=== PATIENT | male | born 1985 | race Caucasian/White ===

== ENCOUNTER 2023-04-05 10:20 | Emergency (ER) | payer SELFPAY ==
--- NOTE | 2023-04-05 10:22 | ED_ITS ---
HPI - Skin/Abscess/Foreign Bdy General: Chief complaint: Skin/Abscess/Foreign Body Stated complaint: rash Time Seen by Provider: 04/05/23 10:22 Source: patient Mode of arrival: ambulatory Limitations: no limitations History of Present Illness: Patient is a 37-year-old male who presents to ED today with a complaint of multiple tick bites to his bilateral feet that he noticed a few days ago. He states the ticks were not attached along but when he pulled them off he then developed a small pustule like lesions that he stated are painful to the touch. He has not noticed any bulls eye lesions. No systemic symptoms. States he is homeless and has a hard time keeping his feet clean. MD complaint: insect bite/sting Onset (ago): day(s) Tetanus up to date: yes Location: L foot and R foot Severity: mild Quality: burning Pain Consistency: constant Relieving factors: none Exacerbating factors: none Context: witnessed insect bite Associated symptoms: Reports no associated symptoms; Deny chills, fever(s), nausea or vomiting Treatments prior to arrival: attempted to drain pus at home Review of Systems Const: Denies: fever(s), chills, body aches, fatigue or malaise Card: Denies: chest pain Resp: Denies: dyspnea GI: Denies: abdominal pain, nausea, vomiting or diarrhea Musc: Reports: extremity pain (bilateral feet); Denies: neck pain, back pain, extremity swelling, joint pain or joint swelling Skin/Breast: Reports: other (tick bites) Neuro: Denies: headache(s), numbness in extremities, weakness in extremities, sensory changes or dizziness Physical Exam Const: COMMON NORMALS: no acute distress, average body habitus, patient oriented x3, no limitations, alert and well nourished GENERAL APPEARANCE: cooperative and disheveled (dirty/odorous-states he is homeless) ORIENTATION/CONSCIOUSNESS: Yes awake, Yes oriented to person, Yes oriented to place and Yes oriented to time Lymph: LYMPHATIC: no lymphadenopathy noted Resp: COMMON NORMALS: normal respiratory effort and clear to auscultation bilaterally AUSCULTATION: clear to auscultation bilaterally Cardio: COMMON NORMALS: regular rate and regular rhythm RATE: regular rate RHYTHM: regular rhythm Extremity: COMMON NORMALS: full ROM, capillary refill normal, no joint enlargement, no clubbing, cyanosis or edema, no calf tenderness and no pedal edema RIGHT LOWER EXTREMITY: Yes foot & digits LEFT LOWER EXTREMITY: Yes foot & digits OTHER: patient has two 3-4mm pustular lesions to dorsal R foot and one to dorsal L foot as well as dorsal L middle toe that he states are from where he pulled ticks off; scant surrounding erythema; no erythema migrans lesions; no streaking; no drainage Neuro: COMMON NORMALS: patient oriented x3, moves all extremities, no focal motor deficits and no sensory deficits noted SENSORIUM/ORIENTATION: Yes alert, Yes oriented to person, Yes oriented to place and Yes oriented to time Course Vital Signs: Vital signs: Vital Signs Temperature 98.0 F 04/05/23 10:23 Pulse Rate 105 H 04/05/23 10:23 Respiratory Rate 16 04/05/23 10:23 Blood Pressure 135/82 04/05/23 10:23 Pulse Oximetry 99 04/05/23 10:23 Oxygen Delivery Me thod Room Air 04/05/23 10:23 MDM - Skin/Abscess/Foreign Bdy Medicial Decision Making Patient appears to have pustular formations from where he pulled ticks off. I do not have any concern at this time for tick illness and he does not need to be covered with such. He admittedly is homeless and has a hard time keeping his feet clean therefore I question whether these bites are starting to get seconda rily infected. Will place him on Keflex. Recommend avoid picking/attempting to drain. Discussed getting him set up with PCP but he declines. Return to ED precautions given. Discharge Plan Discharge Patient Disposition: Home Clinical Impression: Tick bite Qualifiers: Encounter type: initial encounter Site of tick bite: foot Laterality: unspecified laterality Qualified Code(s): S90.869A - Insect bite (nonvenomous), unspecified foot, initial encounter Condition: Stable Prescriptions: New cephalexin 500 mg capsule 500 mg PO Q6H 7 Days Qty: 28 0RF Discharge Orders: Discharge ED (Routine); Ordered 04/05/23 Ordered By: Ivana Allen Patient Instructions: Tick Bites Activity Restrictions/Additional Instructions: As we discussed keep lesions clean with warm soap and water. Avoid poking or trying to drain lesions. Monitor for worsening redness, swelling, pain, drainage. Please seek medical reevaluation if these occur. Coding Level of Care Code ED [employer] T[employer] for [facility]
[2023-04-05 10:23] VITALS: BP 135/82; PULSE 105; RESP 16; TEMP 36.7; O2SAT 99; BMI 22.1
== END 2023-04-05 10:52 | disposition home or self-care (01) ==
PROVIDERS: Emergency Provider Physician Assistant
DX: S90.862A Insect bite (nonvenomous), left foot, initial encounter (principal); S90.861A Insect bite (nonvenomous), right foot, initial encounter; W57.XXXA Bitten or stung by nonvenomous insect and other nonvenomous arthropods, initial encounter
CPT/HCPCS: 99283

== ENCOUNTER 2023-04-22 09:38 | Emergency (ER) | payer SELFPAY ==
--- NOTE | 2023-04-22 09:51 | XR_ITS ---
WS: [id number] LEFT FOREARM 2 VIEWS HISTORY: fall with pain COMPARISON: None available. No fracture or dislocation. No foreign body or joint effusion. No true lateral of the elbow was submitted. IMPRESSION: Negative LEFT forearm. No fractures are identified.
--- NOTE | 2023-04-22 09:51 | XR_ITS ---
WS: [id number] LEFT ELBOW: 3 VIEW(S) TECHNIQUE: AP, oblique and lateral. HISTORY: fall with pain and swelling COMPARISON: None available. No acute fractures or dislocation. No joint effusion. No soft tissue abnormality. IMPRESSION: Normal LEFT elbow.
[2023-04-22 09:55] VITALS: BP 144/98; PULSE 79; RESP 22; O2SAT 97; BMI 22.8
[2023-04-22 10:02] VITALS: BP 144/98; PULSE 84; RESP 22; TEMP 36.6; O2SAT 98
[2023-04-22 10:08] VITALS: RESP 18
[2023-04-22] MEDS: morphine 4 mg/mL SDV 1 mL IM (10:08)
[2023-04-22] MEDS: ondansetron 4 MG Tablet PO (10:09)
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
--- NOTE | 2023-04-22 13:36 | PC.SOCIAL ---
Ortho Referral Ortho referral sent at this time; clinic to contact patient with appt date/time.
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
== END 2023-04-22 11:57 | disposition home or self-care (01) ==
PROVIDERS: Emergency Provider Nurse Practitioner Family
DX: S50.02XA Contusion of left elbow, initial encounter (principal); W18.30XA Fall on same level, unspecified, initial encounter
CPT/HCPCS: 73070; 73090; 96372; 99284; J2270; Q0162

== ENCOUNTER 2023-04-30 18:46 | Emergency (ER) | payer SELFPAY ==
[2023-04-30 18:59] VITALS: BP 129/79; PULSE 108; RESP 16; TEMP 36.9; O2SAT 99; BMI 21.4
--- NOTE | 2023-04-30 19:04 | XRR_ITS ---
PROCEDURE INFORMATION: Exam: XR Left Elbow Exam date and time: 04/30/2023 7:45 PM Age: 37 years old Clinical indication: Injury or trauma; Other: Lt elbow pain; Other: Edema and bruising to medial left elbow TECHNIQUE: Imaging protocol: Radiologic exam of the left elbow. Views: 3 or more views. COMPARISON: CR XR elbow LT 2V [id number] 04/22/2023 9:59 AM FINDINGS: Bones/joints: Small ossific densities adjacent to the lateral epicondyle are unchanged. No displaced fracture visible. No effusion. Soft tissues: Mild soft tissue swelling. XR/XR elbow LT min 3V* [id number] IMPRESSION: 1. Stable small ossific densities adjacent to the lateral epicondyle which may be related to an avulsion injury. MRI could be performed for better characterization. 2. Mild soft tissue swelling.
== END 2023-04-30 20:48 | disposition left against medical advice (07) ==
PROVIDERS: Emergency Provider Family Medicine
DX: Z53.21 Procedure and treatment not carried out due to patient leaving prior to being seen by health care provider (principal)
CPT/HCPCS: 73080; 99283

== ENCOUNTER 2024-08-28 13:26 | Emergency (ER) | payer SELFPAY ==
--- NOTE | 2024-08-28 13:27 | XRR_ITS ---
PROCEDURE INFORMATION: Exam: XR Chest Exam date and time: 08/28/2024 1:40 PM Age: 39 years old Clinical indication: Coughing up yellow/greenish stuff; Additional info: Cough TECHNIQUE: Imaging protocol: Radiologic exam of the chest. Views: 1 view. COMPARISON: No relevant prior studies available. FINDINGS: Lungs: Unremarkable. No consolidation. Pleural spaces: Unremarkable. No pleural effusion. No pneumothorax. Heart/Mediastinum: Unremarkable. No cardiomegaly. Bones/joints: Unremarkable. XR/XR chest 1V portable [id number] IMPRESSION: No acute findings.
[2024-08-28 13:34] VITALS: BP 114/76; PULSE 96; RESP 15; TEMP 36.7; O2SAT 96; BMI 21.4
== END 2024-08-28 16:09 | disposition left against medical advice (07) ==
PROVIDERS: Emergency Provider Family Medicine
DX: Z53.21 Procedure and treatment not carried out due to patient leaving prior to being seen by health care provider (principal)
CPT/HCPCS: 71045

== ENCOUNTER 2025-03-15 12:51 | Emergency (ER) | payer OTHER, SELFPAY ==
--- OUTSIDE RECORDS SUMMARY | 2025-03-15 12:59 | XMS_ITS | Clinical Summary ---
[facility] Organization [facility] Address [address] [place] [address] Phone Care Team Providers Care Protective Clothing Issuer Name Role Phone Unavailable Primary Care Provider Unavailabl e Allergies No known active allergies Medications No known medications Social History Tobacco Use Types Packs/Day Years Used Date Smoking Tobacco: Every Day Cigarettes Smokeless Tobacco: Never Tobacco Cessation:Ready to Q uit: Not Asked; Counseling Given: Not Answered Alcohol Use Standard Drinks/Week Comments Yes 0 (1 standard drink = 0.6 oz pur e alcohol) Feeling Safe Answer Date Recorded Are you in a relationship wi th someone who hurts you emotionally and/or physically? No 07/14/2023 Sex and Gender Information Value Date Recorded Sex Assigned at Not on file Legal Sex Male 4:44 PM [employer] Gender Identity Not on file Sexual Orientation Not on file Last Filed Vital Signs Vital Sign Reading Time Taken Comments Blood Pressure 128/69 07/14/2023 4:51 PM [employer] Pulse - - Temperature 36.6 C (97.8 F) 07/14/2023 4:51 PM [employer] Respiratory Rate 14 07/14/2023 4:51 PM [employer] Oxygen Saturation 98% 07/14/2023 4:51 PM [employer] Inhaled Oxygen Concentration - - Weight 68 kg (149 lb 14.4 oz) 07/14/2023 4:51 PM [employer] Height 175.3 cm (5' 9 ) 07/14/2023 4:51 PM [employer] Body Mass Index 22.14 07/14/2023 4:51 PM [employer] Plan of Treatment Health Maintenance Due Date Last Done Comments HPV VACCINES (1 - Male 3-dose series) 2000 DTAP/TDAP/TD VACCINES (1 - Tdap) 2004 HEPATITIS B VACCINES (1 of 3 - 19+ 3-dose series) 07/27 INFLUENZA VACCINE (#1) 2025 Insurance [employer] [place] [employer]
[2025-03-15 13:02] VITALS: BP 118/79; PULSE 79; RESP 17; TEMP 36.7; O2SAT 100; BMI 21.4
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
[2025-03-15] MEDS: tetanus-dipt-pertussis 0.5 mL SDV IM (15:21)
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
== END 2025-03-15 16:55 | disposition left against medical advice (07) ==
PROVIDERS: Emergency Provider Physician Assistant
DX: Z53.21 Procedure and treatment not carried out due to patient leaving prior to being seen by health care provider (principal); S50.311A Abrasion of right elbow, initial encounter; S60.511A Abrasion of right hand, initial encounter; S70.01XA Contusion of right hip, initial encounter; V09.9XXA Pedestrian injured in unspecified transport accident, initial encounter
CPT/HCPCS: 71250; 73080; 73130; 74176; 90715; 99284

== ENCOUNTER 2025-03-31 18:22 | Emergency (ER) | payer OTHER, SELFPAY ==
[2025-03-31 18:26] VITALS: BP 113/75; PULSE 90; RESP 17; TEMP 36.7; O2SAT 99; BMI 22.1
--- OUTSIDE RECORDS SUMMARY | 2025-03-31 18:27 | XMS_ITS | Clinical Summary ---
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 Gender Identity Not on file Sexual Orientation Not on file Last Filed Vital Signs Vital Sign Reading Time Taken Comments Blood Pressure 128/69 07/14/2023 4:51 PM COMMUNITY PLANNING TECHNICIAN Pulse - - Temperature 36.6 C (97.8 F) 07/14/2023 4:51 PM COMMUNITY PLANNING TECHNICIAN Respiratory Rate 14 07/14/2023 4:51 PM COMMUNITY PLANNING TECHNICIAN Oxygen Saturation 98% 07/14/2023 4:51 PM COMMUNITY PLANNING TECHNICIAN Inhaled Oxygen Concentration - - Weight 68 kg (149 lb 14.4 oz) 07/14/2023 4:51 PM COMMUNITY PLANNING TECHNICIAN Height 175.3 cm (5' 9 ) 07/14/2023 4:51 PM COMMUNITY PLANNING TECHNICIAN Body Mass Index 22.14 07/14/2023 4:51 PM COMMUNITY PLANNING TECHNICIAN Plan of Treatment Health Maintenance Due Date Last Done Comments DTAP/TDAP/TD VACCINES (1 - Tdap) 2004 HEPATITIS B VACCINES (1 of 3 - 19+ 3-dose series) 07/27 HPV VACCINES (1 - 3-dose SCDM series) 2012 INFLUENZA VACCINE (#1) 2025 Insurance [employer] [place] [place] MEDICAID
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
[2025-03-31] MEDS: orphenadrine 30 mg/mL Inj 2 mL 60 MG IM (19:20)
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
== END 2025-03-31 20:29 | disposition home or self-care (01) ==
PROVIDERS: Emergency Provider Physician Assistant
DX: S70.01XA Contusion of right hip, initial encounter (principal); X58.XXXA Exposure to other specified factors, initial encounter
CPT/HCPCS: 73502; 96372; 99284; J1885; J2360

== ENCOUNTER → 2025-05-17 16:46 | Outpatient (BNVA) | payer OTHER, SELFPAY | PROVIDERS: Visit Provider Registered Nurse Neonatal Intensive Care | DX: Z20.2 Contact with and (suspected) exposure to infections with a predominantly sexual mode of transmission (principal) | CPT/HCPCS: 87491; 87591; 87661 ==

== ENCOUNTER 2025-07-19 15:40 | Emergency (ER) | payer OTHER, SELFPAY ==
[2025-07-19 15:42] VITALS: BP 126/79; PULSE 67; RESP 18; TEMP 36.6; O2SAT 98; BMI 22.8
--- OUTSIDE RECORDS SUMMARY | 2025-07-19 15:59 | XMS_ITS | Clinical Summary ---
Author Organization [facility] Address [address] [address] Phone Care Team Providers Care Pneumatic Tester Mechanic Name Role Phone Unavailable Primary Care Provider [...] on file Legal Sex Male 4:44 PM LIVESTOCK PRODUCER Gender Identity Not on file Sexual Orientation Not on file Last Filed Vital Signs Vital Sign Reading Time Taken Comments Blood Pressure 128/69 07/14/2023 4:51 PM LIVESTOCK PRODUCER Pulse - - Temperature 36.6 C (97.8 F) 07/14/2023 4:51 PM LIVESTOCK PRODUCER Respiratory Rate 14 07/14/2023 4:51 PM LIVESTOCK PRODUCER Oxygen Saturation 98% 07/14/2023 4:51 PM LIVESTOCK PRODUCER Inhaled Oxygen Concentration - - Weight 68 kg (149 lb 14.4 oz) 07/14/2023 4:51 PM LIVESTOCK PRODUCER Height 175.3 cm (5' 9 ) 07/14/2023 4:51 PM LIVESTOCK PRODUCER Body Mass Index 22.14 07/14/2023 4:51 PM LIVESTOCK PRODUCER Plan of Treatment Health Maintenance Due Date Last Done Comments DTAP/TDAP/TD VACCINES (1 - Tdap) 2004 HEPATITIS B VACCINES (1 of 3 - 19+ 3-dose series) 07/27 INFLUENZA VACCINE (#1) 2025 HPV VACCINES (No Doses Required) Completed Insurance [employer] [place] [employer]
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
[2025-07-19 16:21] LABS: Hematocrit 45.1 % (37-53); Hemoglobin 14.60 g/dL (11.27-16.99); Mean Corpuscular HGB Conc 32.4 g/dL (30-55); Mean Corpuscular Hemoglobin 30.3 pg (27-33); Mean Corpuscular Volume 93.6 fl (82-101); Nucleated Red Blood Cells % 0 %; Platelet Count 199 10^3/cmm (157-399); Red Blood Count 4.82 10^6/uL (3.85-5.65); White Blood Count 5.92 10^3/uL (3.29-11.43)
--- NOTE | 2025-07-19 16:22 | ED_ITS ---
HPI - Male Genitourinary 2 General: Chief complaint: Urogenital-Male Stated complaint: Blood in Urine Time Seen by Provider: 07/19/25 15:42 Source: patient Mode of arrival: ambulatory Limitations: no limitations History of Present Illness: Patient is a 39-year-old male presents the emergency department from [facility] for complaints of hematuria and right flank and lower abdominal pain for the past few days. States he has a history of UTI as well as kidney infection, and states that in the past he has had infections so bad that his kidneys have shut down. No fevers, nausea/vomiting, trauma, changes in bowel habits, chills, or other symptoms reported at this time. His vitals are stable. He states that he has noted that he has had some incontinence of urine, noting it has been bloody. Complaint: other (Hematuria) Onset (ago): day(s) Duration: constant Severity: similar to previous episodes Associated symptoms: Reports dysuria, hematuria and urinary incontinence; Deny nausea or vomiting Related Data Previous Rx's ?Medication ?Instructions ?Recorded doxycycline hyclate 100 mg tablet 100 mg PO BID 7 days #14 tabs 05/18/25 metronidazole 500 mg tablet 500 mg PO BID 7 days #14 t abs 05/18/25 Allergies Allergy/AdvReac Type Severity Reaction Status Date / Time No Known Allergies Allergy Verified 05/16/25 17:53 Review of Systems 2 General: Reports: 10 or more systems reviewed and unremarkable except in HPI and below Const: Denies: fever(s), chills, change in appetite, change in weight or diaphoresis ENMT: Denies: throat pain or hoarseness Card: Denies: chest pain, palpitations or lightheadedness Resp: Denies: dyspnea, productive cough or wheezing GI: Reports: abdominal pain; Denies: nausea, vomiting, diarrhea, constipation, bloating, change in stool character or hematochezia : Reports: flank pain, dysuria, urinary frequency, urinary incontinence and hematuria Musc: Denies: neck pain or back pain Skin/Breast: Denies: rash or new lesions Neuro: Denies: headache(s) or dizziness PFSH ED 2 PFSH: Social History Smoking and tobacco/nicotine status: current every day tobacco/nicotine user Second hand smoke exposure: Yes Alcohol intake: current Substance/Drug Use: current Substance/Drug use frequency: daily Physical Exam 2 Const: COMMON NORMALS: no acute distress, average body habitus, patient oriented x3, no limitations, healthy appearing, alert and well nourished G ENERAL APPEARANCE: cooperative and comfortable ORIENTATION/CONSCIOUSNESS: Yes awake OTHER: Nontoxic Neck/C-Spine: COMMON NORMALS: full ROM, supple and no meningeal signs Resp: COMMON NORMALS: normal respiratory effort, No retractions, No use of accessory muscles and clear to auscultation bilaterally AUSCULTATION: clear to auscultation bilaterally, no crackles, no rales, no rhonchi and no wheezes Cardio: COMMON NORMALS: regular rate, regular rhythm, No gallops present (Cardio), No clicks present (Cardio), No murmurs present (Cardio) and No rub (Cardio) RATE: regular rate RHYTHM: regular rhythm GI: COMMON NORMALS: Normal to inspection, nondistended, normoactive bowel sounds present, Soft to palpation, No hepatosplenomegaly present and no masses AUSCULTATION: Yes normoactive bowel sounds PALPATION: Yes Soft to palpation, No Guarding due to palpation present (GI), No Rigid due to palpation and Yes No hepatosplenomegaly present RECTAL EXAM: Yes deferred OTHER: Tenderness to right lower abdomen : OTHER: Tender to right flank region Extremity: COMMON NORMALS: normal to inspection and full ROM Neuro: COMMON NORMALS: patient oriented x3, moves all extremities, no focal motor deficits and no sensory deficits noted SENSORIUM/ORIENTATION: Yes alert MENINGEAL SIGNS: Yes no meningeal signs Psych: COMMON NORMALS: mental status grossly normal, cooperative and speech normal SPEECH: Yes normal speech Skin: COMMON NORMALS: no rashes or lesions noted GENERAL SKIN EXAM: no rashes or lesions noted Course 2 Vital Signs: Vital signs: Vital Signs Temperature 97.9 F 07/19/25 15:42 Pulse Rate 72 07/19/25 17:39 Respiratory Rate 18 07/19/25 15:42 Blood Pressure 113/70 07/19/25 17:39 Pulse Oximetry 100 07/19/25 17:39 Oxygen Delivery Sd thod Room Air 07/19/25 16:53 MDM - Male Medical Decision Making The patient presented from [facility] for evaluation of hematuria flank and abdominal pain. Reports to me history of UTI as well as kidney infections. Nontoxic- appearing on exam he had reproducible tenderness to the right flank region as well as to the right lower abdomen. Vitals have been stable. Urinalysis showing blood but no signs infection. His blood work is normal including normal kidney function. CT Abdo pelvis with no acute findings. This is isolated hematuria will be referred to urologist as he is stable for discharge home and outpatient follow-up. Patient agrees with this plan at this time has remained stable throughout ED course. Lab Data 07/19/25 16:14 07/19/25 16:14 Radiology Impressions Abdomen/Pelvis CT 07/19/25 16:01 IMPRESSION: No acute findings. Laboratory Results WBC 5.92 10^3/uL (3.29-11.43) 07/19/25 16:14 RBC 4.82 10^6/uL (3.85-5.65) 07/19/25 16:14 Hgb 14.60 g/dL (11.27-16.99) 07/19/25 16:14 Hct 45.1 % (37-53) 07/19/25 16:14 MCV 93.6 fl (82-101) 07/19/25 16:14 MCH 30.3 pg (27-33) 07/19/25 16:14 MCHC 32.4 g/dL (30-55) 07/19/25 16:14 RDW 13.3 % (12.1-15.1) 07/19/25 16:14 Plt Count 199 10^3/cmm (157-399) 07/19/25 16:14 MPV 12.0 fL (7.4-10.4) H 07/19/25 16:14 Neut % (Auto) 52.4 % 07/19/25 16:14 Lymph % (Auto) 35.6 % 07/19/25 16:14 Riley % (Auto) 9.1 % 07/19/25 16:14 Eos % (Auto) 2.0 % 07/19/25 16:14 Baso % (Auto) 0.7 % 07/19/25 16:14 Neut # (Auto) 3.10 10^3/uL (1.8-7.7) 07/19/25 16:14 Lymph # (Auto) 2.1 10^3/uL (0.8-4.8) 07/19/25 16:14 Riley # (Auto) 0.5 10^3/uL (0.2-0.9) 07/19/25 16:14 Eos # (Auto) 0.1 10^3/uL (0.0-0.8) 07/19/25 16:14 Baso # (Auto) 0.0 10^3/uL (0.0-0.1) 07/19/25 16:14 Nucleated RBC % (auto) 0 % 07/19/25 16:14 Nucleated RBCs # 0.0 /100WBC 07/19/25 16:14 Sodium 141 mmol/L (136-145) 07/19/25 16:14 Potassium 4.7 mmol/L (3.5-5.1) 07/19/25 16:14 Chloride 101 mmol/L (98-107) 07/19/25 16:14 Carbon Dioxide 29 mmol/L (22-29) 07/19/25 16:14 Anion Gap 15.7 (5-19) 07/19/25 16:14 BUN 18 mg/dL (6-20) 07/19/25 16:14 Creatinine 1.0 mg/dL (0.7-1.2) 07/19/25 16:14 GFR Calculation 83.2 mL/min (90-130) L 07/19/25 16:14 Glucose 103 mg/dL (65-115) 07/19/25 16:14 Calculated Osmolality 294 mOsm/kg (285-295) 07/19/25 16:14 Calcium 9.4 mg/dL (8.5-10.5) 07/19/25 16:14 Total Bilirubin 0.3 mg/dL (0.15-1.2) 07/19/25 16:14 AST 17 U/L (0-40) 07/19/25 16:14 ALT 22 U/L (0-41) 07/19/25 16:14 Alkaline Phosphatase 63 U/L (40-130) 07/19/25 16:14 Total Protein 6.9 g/dL (6.6-8.7) 07/19/25 16:14 Albumin 4.6 g/dL (3.5-5.2) 07/19/25 16:14 Globulin 2.3 g/dL (1.3-4.6) 07/19/25 16:14 Lipase 32 U/L (13-60) 07/19/25 16:14 Urine Color Yellow (Yellow) 07/19/25 16:38 Urine Appearance Cloudy (CLEAR) A 07/19/25 16:38 Urine pH 7.0 (5-7) 07/19/25 16:38 Ur Specific [place] 1.022 (1.005-1.030) 07/19/25 16:38 Urine Protein Negative (Negative) 07/19/25 16:38 Urine Glucose (UA) Negative (Normal) 07/19/25 16:38 Urine Ketones Trace (Negative) 07/19/25 16:38 Urine Blood 3+ (Negative) A 07/19/25 16:38 Urine Nitrate Negative (Negative) 07/19/25 16:38 Urine Bilirubin Negative (Negative) 07/19/25 16:38 Urine Urobilinogen 1.0 mg/dL (Negative) 07/19/25 16:38 Ur Leukocyte Esterase Trace (Negative) A 07/19/25 16:38 Urine RBC >100 /hpf (0-2) H 07/19/25 16:38 Urine WBC 6-10 /hpf (0-5) 07/19/25 16:38 Ur Squamous Epith Cells 0-5 /hpf (0-5) 07/19/25 16:38 Amorphous Sediment Not Reportable 07/19/25 16:38 Urine Bacteria None seen /hpf (NONE) 07/19/25 16:38 Hyaline Casts 0.40 /lpf 07/19/25 16:38 All radiology interpretation(s) finalized by discharge Discharge Plan Discharge Patient Disposition: Home Clinical Impression: Hematuria Qualifiers: Hematuria type: gross Qualified Code(s): R31.0 - Gross hematuria Condition: Stable Prescriptions: No Action doxycycline hyclate 100 mg tablet 100 mg PO BID 7 Days Qty: 14 0RF metronidazole 500 mg tablet 500 mg PO BID 7 Days Qty: 14 0RF Discharge Orders: Discharge ED (Routine); Ordered 07/19/25 Ordered By: Ambrose Daugherty Patient Instructions: Patient Portal & Shen Instructions Activity Restrictions/Additional Instructions: Discharge Instructions: Isolated Hematuria Diagnosis: You were evaluated for blood in your urine (hematuria). Your blood tests and CT scan were normal. What This Means: Blood in the urine can have many causes. While your initial testing showed no obvious problems, it is important to complete a full evaluation with a urologist (a specialist in urinary tract conditions). Most causes of blood in the urine are not serious, but some require treatment. Follow-Up Care: - You have been referred to a urologist who will perform additional testing, which may include a camera examination of your bladder (cystoscopy) - Schedule this appointment within 2-4 weeks - do not delay this evaluation - The urology office will contact you, but if you do not hear from them within one week, please call them directly - Bring a list of all your medications to your urology appointment What to Watch For - Call Your Doctor or Go to the Emergency Department If You Experience: - Visible blood in your urine (pink, red, or tea-colored urine) - Inability to urinate - Fever over 100.4?F (38?C) - Severe pain in your back, side, or lower abdomen - Burning or pain with urination along with fever General Instructions: - Continue taking all your regular medications as prescribed - Stay well hydrated by drinking plenty of water - Avoid smoking, as this increases the risk of bladder problems - If you take blood thinners (such as aspirin, warfarin, or other anticoagulants), continue taking them as prescribed - these medications do not change the need for evaluation Questions? If you have any questions or concerns before your urology appointment, please contact our office. [facility] [place], [place] Print Language: Urdu Coding Level of Care Code ED Casting Sorter for [facility] [place]
[2025-07-19 16:42] LABS: Alanine Aminotransferase 22 U/L (0-41); Albumin Level 4.6 g/dL (3.5-5.2); Alkaline Phosphatase 63 U/L (40-130); Aspartate Amino Transferase 17 U/L (0-40); Blood Urea Nitrogen 18 mg/dL (6-20); Calcium 9.4 mg/dL (8.5-10.5); Carbon Dioxide 29 mmol/L (22-29); Chloride 101 mmol/L (98-107); Globulin 2.3 g/dL (1.3-4.6); Glucose 103 mg/dL (65-115); Lipase 32 U/L (13-60); Osmolality Calculated 294 mOsm/kg (285-295); Sodium 141 mmol/L (136-145); Total Protein 6.9 g/dL (6.6-8.7)
[2025-07-19 16:46] LABS: Anion Gap 15.7 (5-19); Potassium 4.7 mmol/L (3.5-5.1)
[2025-07-19 16:49] LABS: Glucose Urine UA Negative (Normal); Nitrate Urine Negative (Negative); Specific Gravity, Urine 1.022 (1.005-1.030)
[2025-07-19 16:51] LABS: Add Urine Microscopic? YES
[2025-07-19 16:53] VITALS: BP 120/70; PULSE 62; O2SAT 100
[2025-07-19 17:39] VITALS: BP 113/70; PULSE 72; O2SAT 100
== END 2025-07-19 17:55 | disposition home or self-care (01) ==
PROVIDERS: Emergency Provider Physician Assistant
DX: R31.0 Gross hematuria (principal); Z72.0 Tobacco use
CPT/HCPCS: 36415; 74176; 80053; 81001; 83690; 85025; 87086; 99284